=== PATIENT | male | born 1970 | race Caucasian/White ===

== ENCOUNTER → 2017-03-26 | Outpatient (CLI) | payer BC ==
--- NOTE | 2017-03-27 12:03 | PCVCIMAG ---
APPROVED REPORT Study performed: 03/26/2017 14:15:48 EXAM: Comprehensive 2D, Doppler, and color-flow Echocardiogram Patient Location: Echo lab Status: routine BSA: 2.13 HR: 68 bpmBP: 128/78 mmHg Rhythm: NSR Other Information Study Quality: Adequate Indications Dyspnea Aortic Insufficiency, bicuspid aortic valve 2D Dimensions LVEF(%): 54.18 (>50%) IVSd: 9.58 (7-11mm)LVOT Diam: 23.03 (18-24mm) LVDd: 57.95 mm PWd: 9.81 (7-11mm)Ascending Ao: 42.15 (22-36mm) LVDs: 41.45 (25-40mm) Left Atrium: 37.66 (27-40mm) Aortic Root: 37.54 mm LV Single Plane 4CH: 58.45 % LV Single Plane 2CH: 60.98 %Guevara's LVEF: 59.72 % Biplane EF: 60.4 % Volumes Left Atrial Volume (Systole) Single Plane 4CH: 52.78 mLSingle Plane 2CH: 72.69 mL LA ESV Index: 30.00 mL/m2 Aortic Valve AoV Peak Max.: 1.98 m/s AO Peak Gr.: 14.72 mmHgLVOT Max P.93 mmHg AO Mean Gr.: 8.64 mmHgLVOT Mean P.56 mmHg AO V2 Mean: 1.39 m/sLVOT Max V: 1.11 m/s AO V2 VTI: 40.93 cmLVOT Mean V: 0.76 m/s MARJORIE (VTI): 2.35 [id number] V1 VTI: 23.13 cm MARJORIE Vmax: 2.33 cm2 AI Vmax: 4.88 m/sSV (LVOT): 96.26 mL AI Callaway: 3.38 m/s2 AI PHT: 419.57 ms Mitral Valve E/A Ratio: 0.8 MV Decel. Time: 328.54 ms MV E Max Max.: 0.41 m/s MV A Max.: 0.51 m/s IVRT: 134.95 ms Pulmonary Valve PV Peak Max.: 0.96 m/sPV Peak Gr.: 3.69 mmHg Pulmonary Vein P Vein S: 0.34 m/sP Vein A: 0.32 m/s P Vein D: 0.45 m/sP Vein A Dur.: 128.0 msec P Vein S/D Ratio: 0.76 Tricuspid Valve TR Peak Max.: 2.20 m/s TR Peak Gr.: 19.44 mmHg Left Ventricle The left ventricle is normal size. There is normal LV segmental wall motion. There is normal left ventricular wall thickness. Left ventricular systolic function is normal. The left ventricular ejection fraction is within the normal range. LVEF is 60%. Grade I - abnormal relaxation pattern. Right Ventricle The right ventricle is normal size. The right ventricular systolic function is normal. Atria The left atrium size is normal. The right atrium size is normal. Aortic Valve The aortic valve is bicuspid. Moderate aortic regurgitation. There is no aortic valvular stenosis. Mitral Valve The mitral valve is normal in structure. Trace mitral regurgitation. No evidence of mitral valve stenosis. Tricuspid Valve The tricuspid valve is normal in structure. Trace tricuspid regurgitation with PAP of 26 mmHg. Pulmonic Valve The pulmonary valve is normal in structure. Trace pulmonic regurgitation. Great Vessels The aortic root is normal in size. The ascending aorta is mildly dilated to 4.2 cm. IVC is normal in size and collapses with >50% inspiration Pericardium There is no pericardial effusion. <Conclusion> The left ventricle is normal size. Left ventricular systolic function is normal. Grade I - abnormal relaxation pattern. The right ventricle is normal size. The left atrium size is normal. Moderate aortic regurgitation. Trace mitral regurgitation. Trace tricuspid regurgitation with PAP of 26 mmHg. The ascending aorta is mildly dilated to 4.2 cm.
== END | disposition home or self-care (01) ==
LOC: PCVCIMAG 14:02
PROVIDERS: ATTEND Internal Medicine Cardiovascular Disease
DX: I35.1 Nonrheumatic aortic (valve) insufficiency (principal); R06.00 Dyspnea, unspecified
CPT/HCPCS: 93306

== ENCOUNTER → 2017-04-24 | Outpatient (CLI) | payer BC | END | disposition home or self-care (01) | LOC: PCVCIMAG 13:07 | DX: I10 Essential (primary) hypertension (principal); E78.5 Hyperlipidemia, unspecified; R06.00 Dyspnea, unspecified; I35.1 Nonrheumatic aortic (valve) insufficiency | CPT/HCPCS: 93325; 93351 ==